=== PATIENT | female | born 2005 | race Caucasian/White ===

== ENCOUNTER 2024-09-22 16:07 | Emergency (ER) | payer OTHER, SELFPAY ==
--- NOTE | ~2024-09-22 | CT_ITS ---
EXAMINATION: CT HEAD WITHOUT CONTRAST CT CERVICAL SPINE WITHOUT CONTRAST CLINICAL INFORMATION: Seizure. Neck injury. COMPARISON: None available. TECHNIQUE: Contiguous axial imaging was performed from the skull base to vertex without intravenous administration of contrast. Contiguous axial CT images of the cervical spine were obtained without contrast. Sagittal and coronal reformats were provided and reviewed. This CT examination was performed using dose optimization techniques as appropriate, variously including the following: *Automated exposure control *Adjustment of mA and/or kV according to patient size (this includes techniques or standardized protocols for targeted exams where dose is matched to indication/reason for exam; i.e. extremities or head) *Use of iterative reconstruction technique DLP: 903 mGy-cm. FINDINGS: HEAD: There is no evidence of acute intracranial hemorrhage or territorial infarction. No abnormal mass effect or midline shift is seen. Starr to white matter differentiation is well preserved. No extra-axial fluid collections are identified. The ventricles are normal in size. There is no abnormal attenuation within the brain parenchyma. The osseous structures and soft tissues are normal. The mastoid air cells and visualized portions of the paranasal sinuses are well aerated. CERVICAL SPINE: Straightening of the normal cervical lordosis, which may be positional or related to muscular spasm. No acute fracture or subluxation. No loss of vertebral body or intervertebral disc height. Unremarkable facet joints. No lytic or blastic osseous lesion. Unremarkable prevertebral soft tissues. No abnormal soft tissue mass or fluid collection. Thyroid within normal limits. Visualized lung apices are clear. No significant central canal or neural foraminal stenosis. CT/CT cervical spine wo IV con IMPRESSION: HEAD: No acute intracranial hemorrhage or mass effect. CERVICAL SPINE: No acute fracture or subluxation. Straightening of the normal cervical lordosis, which may be positional or related to muscular spasm. Electronically signed by: Ron Delgado MD 09/22/2024 08:42 [place] [facility] [place]
--- NOTE | ~2024-09-22 | CT_ITS ---
EXAMINATION: CT HEAD WITHOUT CONTRAST CT CERVICAL SPINE WITHOUT CONTRAST CLINICAL INFORMATION: Seizure. Neck injury. COMPARISON: None available. TECHNIQUE: Contiguous axial imaging was performed from the skull base to vertex without intravenous administration of contrast. Contiguous axial CT images of the cervical spine were obtained without contrast. Sagittal and coronal reformats were provided and reviewed. This CT examination was performed using dose optimization techniques as appropriate, variously including the following: *Automated exposure control *Adjustment of mA and/or kV according to patient size (this includes techniques or standardized protocols for targeted exams where dose is matched to indication/reason for exam; i.e. extremities or head) *Use of iterative reconstruction technique DLP: 903 mGy-cm. FINDINGS: HEAD: There is no evidence of acute intracranial hemorrhage or territorial infarction. No abnormal mass effect or midline shift is seen. Starr to white matter differentiation is well preserved. No extra-axial fluid collections are identified. The ventricles are normal in size. There is no abnormal attenuation within the brain parenchyma. The osseous structures and soft tissues are normal. The mastoid air cells and visualized portions of the paranasal sinuses are well aerated. CERVICAL SPINE: Straightening of the normal cervical lordosis, which may be positional or related to muscular spasm. No acute fracture or subluxation. No loss of vertebral body or intervertebral disc height. Unremarkable facet joints. No lytic or blastic osseous lesion. Unremarkable prevertebral soft tissues. No abnormal soft tissue mass or fluid collection. Thyroid within normal limits. Visualized lung apices are clear. No significant central canal or neural foraminal stenosis. CT/CT head/brain wo IV con IMPRESSION: HEAD: No acute intracranial hemorrhage or mass effect. CERVICAL SPINE: No acute fracture or subluxation. Straightening of the normal cervical lordosis, which may be positional or related to muscular spasm. Electronically signed by: Ron Delgado MD 09/22/2024 08:42 PM [facility]
[2024-09-22 16:12] VITALS: BP 130/76; PULSE 92; O2SAT 97
[2024-09-22 16:14] VITALS: BP 115/74; PULSE 96; RESP 18; TEMP 36.6; O2SAT 98; BMI 28.0
--- NOTE | 2024-09-22 16:32 | ECG_ITS ---
Test Reason : CP Blood Pressure : / mmHG Vent. Rate : 098 BPM Atrial Rate : 098 BPM P-R Int : 142 ms QRS Dur : 068 ms QT Int : 332 ms P-R-T Axes : 058 009 035 degrees QTc Int : 423 ms Normal sinus rhythm Normal ECG No previous ECGs available Referred By: Yuliet Fajardo Electronically Signed By:MAXIMO OWENS MD
[2024-09-22 16:47] LABS: MANUAL DIFF FLAG NO
[2024-09-22 16:52] LABS: Basophils Percent Auto 0.5 % (0-2); Eosinophils Absolute Auto 0.2 X10*3/uL (0.0-0.4); Eosinophils Percent Auto 2.7 % (0-4); Hematocrit 34.3 % (37.0-47.0); Imm Gran Abs Auto 0.02 X10*3/uL (0.00-0.03); Imm Gran Pct Auto 0.3 % (0.0-0.4); Mean Corpuscular HGB Conc 32.1 g/dl (31.0-35.0); Mean Corpuscular Hemoglobin 26.4 pg (27.0-33.0); Mean Corpuscular Volume 82.3 fL (80.0-98.0); Mean Platelet Volume 7.8 fL (9.4-12.3); Monocytes Absolute Auto 0.4 X10*3/uL (0.1-1.2); Monocytes Percent Auto 6.6 % (2-11); Neutrophils Absolute Auto 3.7 x10*3/uL (2.0-8.3); Neutrophils Percent Auto 58.9 % (45-73); Platelet Count 364 X10*3/uL (160-400); Red Blood Count 4.17 X10*6/uL (4.20-5.50); Red Cell Distribution Width 14.3 % (11.0-16.0); White Blood Count 6.4 X10*3/uL (4.8-10.8)
[2024-09-22 17:23] LABS: Anion Gap 12 (12-20); Blood Urea Nitrogen 8 mg/dL (9-16); Calcium 9.7 mg/dL (8.4-10.2); Carbon Dioxide 24 mmol/L (22-29); Chloride 105 mmol/L (96-108); Creatinine Clr Calc Pharmacy 129.2; Estimated Glomerular Filt Rate > 60; Glucose Random 109 mg/dL (60-115); Potassium 3.5 mmol/L (3.3-5.1); Sodium 137 mmol/L (135-145)
[2024-09-22 17:25] LABS: Carbamazepine Tegretol < 2.0 mcg/mL (5.0-12.0)
[2024-09-22 17:28] LABS: HCG Quantitative < 2 mIU/mL
--- NOTE | 2024-09-22 17:35 | ED_ITS ---
HPI - Seizure General Chief Complaint: Seizure Stated Complaint: 2 SEIZURES DURING [employer] GAME PER EMS Time Seen by Provider: 09/22/24 16:31 History of Present Illness HPI Narrative: Patient is a 18-year-old female with a history of seizures in the past. Had 2 witnessed seizure at the basketball game. Mom claims compliance with medication as the medication was given to her. She has a history of being on Keppra 2000 mg twice a day. History being on phenobarbital 90 mg every day. History of being on Trileptal 150 mg twice a day. Patient's get seizure every few months. The last seizure she had was back in March. There is no chest pain there is no diaphoresis. There was no coughing or congestion upper respiratory symptoms. Patient is from basketball court. Question if patient fell and hit her head. She was collared sent in for further evaluation. Seizure History: Yes Place: School Related Data Allergies Allergy/AdvReac Type Severity Reaction Status Date / Time No Known Allergies Allergy Verified 09/22/24 16:20 Review of Systems 2 Review of Systems: No fever no chills no diaphoresis. No focal weakness. Yes all other systems are reviewed and are negative [facility] Past Medical History Attestation statement: The following information was validated with the patient. Social History Social History Smoked in Last 30 Days: No Use of substances other than those prescribed or required for medical reasons: No Any prior treatment program specific to substance use: No Advance Directives: No Advance Directives Information Provided: No Do you have a plan to hurt others: No Plan Physical Exam 2 Vital Signs: Vital Signs: Last Vital Signs Temp 98.3 F 09/22/24 19:11 Pulse 99 09/22/24 19:11 Resp 18 09/22/24 19:11 BP 126/75 09/22/24 19:11 Pulse Ox 100 09/22/24 19:11 O2 Del Method Room Air 09/22/24 19:11 BMI result Body Mass Index 28.0 Appearance: Alert. Oriented X3. No acute distress. Eyes: Pupils equal, round and reactive to light. ENT: Pharynx normal. Neck: Normal inspection. Neck supple. No lymph nodes noted. No crepitus CVS: Normal heart rate and rhythm. Pulses normal. Normal S1 and S2 Respiratory: No respiratory distress. Breath sounds normal. No Wheezing. No rales Abdomen: Soft and nontender. No rigidity. No distention. good BS x4 Skin: Skin warm and dry. Normal skin color. Normal skin turgor. Extremities: No lower extremity edema. Neurovascular intact to all extremities. No Lacerations. No Rash Neuro: Oriented X 3. No motor deficit. No sensory deficit. Moving all extermities. No slurred speech Medications Administered Discontinued Medications Generic Name Dose Route Start Last Admin Trade Name Darshan PRN Reason Stop Dose Admin Acetaminophen 975 mg 09/22/24 19:27 09/22/24 19:33 Acetaminophen 325 Mg Tablet PO 09/22/24 19:28 975 mg ONCE ONE Administration Levetiracetam 2,000 mg 09/22/24 17:47 09/22/24 18:43 Levetiracetam 1,000 Mg Tablet PO 09/22/24 17:48 2,000 mg ONCE ONE Administration Oxcarbazepine 150 mg 09/22/24 17:47 09/22/24 18:43 Oxcarbazepine 150 Mg Tablet PO 09/22/24 17:48 150 mg ONCE ONE Administration Phenobarbital 90 mg 09/22/24 17:47 09/22/24 18:43 Phenobarbital 30 Mg Tablet PO 09/22/24 17:48 90 mg ONCE ONE Administration Medical Decision Making Medical Decision Making [facility] Narrative: Patient presents today with having a seizure history of seizures in the past. Gets 1 every few months. Patient had [address] scan of the head was grossly negative. CT C-spine was negative for any acute evidence of fracture as there was a question history of trauma. Patient is electrolytes are normal. Baseline is on phenobarb, Trileptal, Keppra. Initially we thought patient was on carbamazepine. She has not. Patient's phenobarb level was low. Was given Bactrim medication. A dose of Trileptal was given. In addition to her usual dose of Keppra. Family is aware will have patient follow seizure precaution. She is currently in stable condition. Differential Diagnosis Differential Diagnoses: The differential diagnosis associated with the presentation includes Seizure, breakthrough seizure Admission/Observation Consideration of admission/observation: Escalation of care including admission/observation considered Lab Data [facility] Lab Attestation statement: I reviewed the patient's lab results. 09/22/24 16:42 09/22/24 16:42 Labs: Lab Results 09/22/24 09/22/24 Range/Units 16:42 18:00 WBC 6.4 (4.8-10.8) X10*3/uL RBC 4.17 L (4.20-5.50) X10*6/uL Hgb 11.0 L (12.0-16.0) g/dl Hct 34.3 L (37.0-47.0) % MCV 82.3 (80.0-98.0) fL MCH 26.4 L (27.0-33.0) pg MCHC 32.1 (31.0-35.0) g/dl RDW 14.3 (11.0-16.0) % Plt Count 364 (160-400) X10*3/uL MPV 7.8 L (9.4-12.3) fL Immature Gran % (Auto) 0.3 (0.0-0.4) % Neut % (Auto) 58.9 (45-73) % Lymph % (Auto) 31.0 (20-40) % Wright % (Auto) 6.6 (2-11) % Eos % (Auto) 2.7 (0-4) % Baso % (Auto) 0.5 (0-2) % Lymph # (Auto) 2.0 (1.2-4.9) X10*3/uL Wright # (Auto) 0.4 (0.1-1.2) X10*3/uL Eos # (Auto) 0.2 (0.0-0.4) X10*3/uL Baso # (Auto) 0.0 (0.0-0.2) X10*3/uL Abs Immat Gran (auto) 0.02 (0.00-0.03) X10*3/uL Absolute Neuts (auto) 3.7 (2.0-8.3) x10*3/uL Absolute Nucleated RBC 0.000 (0.0-0.012) X10*3/uL Nucleated RBC % (auto) 0.0 (0.0-0.2) /100WBC Sodium 137 (135-145) mmol/L Potassium 3.5 (3.3-5.1) mmol/L Chloride 105 (96-108) mmol/L Carbon Dioxide 24 (22-29) mmol/L Anion Gap 12 (12-20) BUN 8 L (9-16) mg/dL Creatinine 0.69 (0.5-1.4) mg/dL Estim Creat Clear Calc 129.2 Estimated GFR > 60 Random Glucose 109 (60-115) mg/dL Calcium 9.7 (8.4-10.2) mg/dL Beta HCG, Quant < 2 mIU/mL Urine Color Yellow Urine Appearance Clear Urine pH 5.5 (5.0-9.0) Ur Specific [place] <= 1.005 (1.005-1.025) Urine Protein Negative (Neg-Trace) mg/dL Urine Glucose (UA) Negative (Negative) mg/dL Urine Ketones Negative (Negative) mg/dL Urine Blood Large (3+) H (Negative) Urine Nitrite Negative (Negative) Ur Leukocyte Esterase Negative (Negative) Urine RBC >20 H (0-2) /HPF Urine WBC 0-5 (0-5) /HPF Ur Squamous Epith Cells 0-2 (0-2) /HPF Urine Bacteria None Seen (None Seen) Hyaline Casts 0-2 (0-2) /LPF Urine Opiates Screen Not Detected (Not Detect) Ur Buprenorphine Scrn Not Detected (Not Detect) ng/mL Ur Oxycodone Screen Not Detected (Not Detect) ng/mL Urine Methadone Screen Not Detected (Not Detect) ng/mL Urine Fentanyl Screen Not Detected (Not Detect) Ur Barbiturates Screen POSITIVE H (Not Detect) Carbamazepine < 2.0 L* (5.0-12.0) mcg/mL Ur Phencyclidine Scrn Not Detected (Not Detect) Ur Amphetamines Screen Not Detected (Not Detect) Phenobarbital 9.3 L* (10.0-40.0) mcg/mL U Benzodiazepines Scrn Not Detected (Not Detect) Urine Cocaine Screen Not Detected (Not Detect) U Marijuana (THC) Screen Not Detected (Not Detect) Independent Interpretation I performed an independent interpretation of an: CT Scan (CT head grossly negative) Radiology Impression Discussion of test interpretation with radiology: I have reviewed the radiologist's reading. Independent Historian Clinical information obtained from an independent historian. History obtained from or confirmed by: Parent Chronic Conditions Cerebral palsy history of seizure Social Determinants Patient?s care significantly limited by Social Determinants of Health including: Other Social Determinant of Health Discharge Plan Discharge Clinical Impression: Epileptic seizure Patient Disposition: Home, Self-Care Instructions: Recurrent Seizures in Adults (ED) Referrals: Love Sawant MD [Primary Care Provider] - (Please take your seizure medications. Close follow-up advised in the next few days) Stand Alone Forms: Work/School Release Print Language: Swedish
[2024-09-22 18:09] LABS: Appearance Urine Clear; Color Urine Yellow; Glucose Urine UA Negative (Negative); Leukocyte Esterase Urine Negative (Negative); Nitrite Urine Negative (Negative); PH 5.5 (5.0-9.0); Specific Gravity - Urine <= 1.005 (1.005-1.025); UMIC TRIGGER UACC YES; Urine Blood Large (3+) (Negative); Urine Ketones Negative (Negative); Urine Protein Negative (Neg-Trace)
[2024-09-22 18:18] LABS: Amphetamine Screen Urine Not Detected (Not Detect); Barbiturates, Urine POSITIVE (Not Detect); Benzodiazepines Screen Urine Not Detected (Not Detect); Buprenorphine Scr Not Detected (Not Detect); Cannabinoid Screen Urine Not Detected (Not Detect); Cocaine Screen Urine Not Detected (Not Detect); Fentanyl, urine Not Detected (Not Detect); Methadone Screen, Urine Not Detected (Not Detect); Opiate Screen Urine Not Detected (Not Detect); Oxycodone Screen Urine Not Detected (Not Detect); Phencyclidine Screen Urine Not Detected (Not Detect)
[2024-09-22 18:23] LABS: Bacteria Urine None Seen (None Seen); Hyaline Casts Urine 0-2 /LPF (0-2); RBC Urine >20 /HPF (0-2); Squamous Epithelial Cell Urine 0-2 /HPF (0-2); WBC Urine 0-5 /HPF (0-5)
[2024-09-22] MEDS: levETIRAcetam 1,000 MG TABLET 2000 MG PO (18:43)
[2024-09-22] MEDS: PHENobarbitaL 30 MG TABLET 90 MG PO (18:43)
[2024-09-22] MEDS: OXcarbazepine 150 MG TABLET PO (18:43)
--- NOTE | 2024-09-22 19:05 | PC.NURSE ---
report received from Benny FISH, assume care of pt at this time
[2024-09-22 19:11] VITALS: BP 126/75; PULSE 99; RESP 18; TEMP 36.8; O2SAT 100
[2024-09-22] MEDS: Acetaminophen 325 MG TABLET 975 MG PO (19:33)
[2024-09-22 21:28] VITALS: BP 111/62; PULSE 82; RESP 16; TEMP 36.8; O2SAT 100
== END 2024-09-22 21:29 | disposition home or self-care (01) ==
PROVIDERS: Emergency Provider Emergency Medicine Emergency Medical Services; PCP Pediatrics Adolescent Medicine
DX: G40.909 Epilepsy, unspecified, not intractable, without status epilepticus (principal); Z79.899 Other long term (current) drug therapy
CPT/HCPCS: 36415; 70450; 72125; 80048; 80156; 80184; 80307; 81001; 84702; 85025; 93005; 99285

== ENCOUNTER → 2024-09-22 16:32 | Outpatient (BNV) | payer OTHER, SELFPAY | PROVIDERS: Emergency Provider Emergency Medicine Emergency Medical Services; PCP Pediatrics Adolescent Medicine; Visit Provider Internal Medicine Cardiovascular Disease | DX: R07.9 Chest pain, unspecified (principal) | CPT/HCPCS: 93010 ==